=== PATIENT | female | born 1930 | race Caucasian/White ===

== ENCOUNTER 2017-04-13 06:06 | Inpatient (IN) | payer MEDICARE, BC ==
--- NOTE | ~2017-04-13 | CT57 ---
[facility] A Service of [facility] & [facility] RADIOLOGY TEXT RESULTS PATIENT: RIGO GUILLEN LOCATION: [facility] 317- : [birth year] UNIT #: [id number] AGE: [address]: Henna Sosa MD SEX: F ORDER DR: [id number] [facility] [address] [place], [place] [address] [id number] I MR#: [id number] Acc #: [id number] NAME: RIGO GUILLEN. : 1930 SEX: F STUDY DATE/TIME: 04/14/2017 12:12 UNIT: C3A U ROOM: [facility] STUDY DESCRIPTION: CT Chest Wo Cont Attending Physician: eHnna Sosa M.D. Ordering Physician: Henna Sosa M.D. Primary Care Physician: Andrew Ash Jr., M.D. MEDICAL IMAGING REPORT This report is preliminary unless electronic signature is present EXAM Chest CT, no contrast, 04/14/2017. INDICATIONS Weight loss, cough. Hypertension. Symptoms since the 11 of April. Leakage in the heart. TECHNIQUE Noncontrast CT of the chest was performed. This CT exam was performed with one or more of the following radiation dose reduction techniques: automatic exposure control, adjustment of mA and/or kV according to patient size, and iterative reconstruction. COMPARISON STUDIES Correlation is made with chest x-ray, 04/13/2017. FINDINGS Trace effusions present. Right slightly greater than left. Probable compressive atelectasis in both lower lobes, right slightly greater than left. Mild bronchiectatic change in both lower lobes and underlying emphysema. Probable rounded atelectasis or less likely pneumonia in the lingula. Imaging followup to resolution is recommended after appropriate therapy. There are additional areas of curvilinear atelectasis/scarring in both lung bases. No suspicious pulmonary nodule. There is heterogeneity and nodularity of the thyroid gland with what appear to represent calcified thyroid nodules. This could be better assessed with nonemergent thyroid ultrasound. No pericardial effusion. No axillary adenopathy on the right. There is soft tissue swelling in the left axilla, and there is a fracture deformity through the left humerus at the level of the surgical neck. Please see plain film studies performed 04/12/2017 for further details. There is no aortic aneurysm. [facility]. [facility] A Service of [facility] RADIOLOGY TEXT RESULTS PATIENT: RIGO GUILLEN LOCATION: [facility] 317-01 : [birth year] UNIT #: [id number] AGE: [address]: Henna Sosa MD SEX: F ORDER DR: Included upper abdomen demonstrates no acute finding. No distinct rib fracture. Chronic-appearing posterior and lateral rib fractures on the right. IMPRESSION 1. There are trace effusions bilaterally. Probable compressive atelectasis or less likely pneumonia in the lung bases but this should be correlated clinically. There is rounded atelectasis or pneumonia in the lingula. Follow up to clearing after appropriate therapy recommended. 2. Background changes of emphysema. There is bronchiectatic change in both lower lobes. No pneumothorax. 3. There is an acute fracture deformity through the surgical neck of the left humerus, and there is soft tissue swelling in the left shoulder and axilla. 4. Upper abdomen demonstrates no acute finding. Incidental chronic-appearing rib fractures. Dictated by... Noel Fajardo M.D. THIS IS AN ELECTRONICALLY VERIFIED REPORT Noel Fajardo M.D. at 04/15/2017 8:48 AM Margarita TD: 04/14/2017 23:38 JOB #: [id number] MEDICAL IMAGING REPORT Page 1 of 1 COPY
--- NOTE | ~2017-04-13 | US37 ---
[facility] A Service of [facility] & [facility] RADIOLOGY TEXT RESULTS PATIENT: RIGO GUILLEN LOCATION: [facility] 317- : [birth year] UNIT #: [id number] AGE: [address]: Henna Sosa MD SEX: F ORDER DR: [id number] [facility] [address] [place], [place] [address] [id number] I MR#: [id number] Acc #: [id number] NAME: RIGO GUILLEN. : 1930 SEX: F STUDY DATE/TIME: 04/16/2017 8:18 UNIT: C3A PCU ROOM: [facility] STUDY DESCRIPTION: US Carotid W/Doppler Bilateral Attending Physician: Henna Sosa M.D. Ordering Physician: Jack Castaneda M.D. Primary Care Physician: Andrew Ash Jr., M.D. MEDICAL IMAGING REPORT This report is preliminary unless electronic signature is present EXAM Carotid ultrasound duplex bilateral, 04/16/2017. HISTORY Altered mental status, hypertension, hyperlipemia, carotid stenosis. TECHNIQUE Real time ultrasonography cervical carotid and vertebral arteries performed. Dill-scale, color Doppler, and Doppler pulse-wave interrogation utilized. Carotid flow evaluated using methodology based upon NASCET criteria. FINDINGS Atherosclerotic plaque seen at the right carotid bifurcation, in the proximal right internal carotid artery. There is some atherosclerotic plaque seen in the mid left internal carotid artery as well. Peak systolic velocities on the right are as follows: Common carotid artery 0.63 m/sec, internal carotid artery 0.95 m/sec, in the mid segment of the artery, external carotid artery 1.30 m/sec. There is antegrade flow in the right vertebral artery. The right IC/CC ratio is 1.5. Right-sided Doppler pulse waveforms within normal limits. On the left, peak systolic velocities as follows: Common carotid arteries are 0.82 m/sec, internal carotid artery 0.96 m/sec in the distal segment of artery, external carotid artery 1.0 m/sec. There is antegrade flow in the left vertebral artery. The left IC/CC ratio is 1.2. Left-sided Doppler pulse waveforms within normal limits. IMPRESSION 1. There is no evidence of hemodynamically significant luminal narrowing in the bilateral cervical internal carotid arteries using methodology based upon mass effect. [facility] A Service of [facility] RADIOLOGY TEXT RESULTS PATIENT: RIGO GUILLEN LOCATION: [facility] 317-01 : [birth year] UNIT #: [id number] AGE: [address]: Henna Sosa MD SEX: F ORDER DR: 2. Elevated peak systolic velocity in the right external carotid artery could reflect approximately 50% to 69% luminal narrowing in the right external carotid artery. 3. Antegrade flow in both vertebral arteries. 4. Scattered atherosclerotic plaque as described above. Dictated by... Andrew Gannon M.D. THIS IS AN ELECTRONICALLY VERIFIED REPORT Andrew Gannon M.D. at 04/18/2017 11:34 AM PETER/saray TD: 04/16/2017 18:24 JOB #: [id number] MEDICAL IMAGING REPORT Page 1 of 1 COPY
--- NOTE | ~2017-04-13 | MR17 ---
[facility] A Service of [facility] RADIOLOGY TEXT RESULTS PATIENT: RIGO GUILLEN LOCATION: [facility] 317- : [birth year] UNIT #: [id number] AGE: [address]: Henna Sosa MD SEX: F ORDER DR: [id number] [facility] [address] [place], [place] [address] [id number] I MR#: [id number] Acc #: [id number] NAME: RIGO GUILLEN : 1930 SEX: F STUDY DATE/TIME: 04/15/2017 12:00 UNIT: C3A PCU ROOM: [facility] STUDY DESCRIPTION: MR Brain WWo Contrast Attending Physician: Henna Sosa M.D. Ordering Physician: Henna Sosa M.D. Primary Care Physician: Andrew Ash Jr., M.D. MRI CENTER REPORT This report is preliminary unless electronic signature is present. EXAM MRI with and without contrast Date study 04/15/2017 PROCEDURE Routine brain MRI with and without contrast. COMPARISON STUDIES Head CT dated 04/13/2017. CLINICAL HISTORY Fall last night with syncope and dizziness. FINDINGS There is a thin right and left subdural hematoma with both acute and chronic components. It is only truly evident on FLAIR and gradient-echo images. There is some thin dural enhancement suggesting probably chronic subdural collections, but there is no parenchymal hemorrhage or evidence of acute ischemia. The dural venous sinuses appear normal and bone marrow signal is normal. IMPRESSION 1. Thin mixed age with some acute component bilateral subdural collections/ hemorrhage without acute ischemia or acute parenchymal hemorrhage. There is some dural enhancement which may indicate more chronic subdural process, but there is no midline shift or hydrocephalus, parenchymal hemorrhage or acute ischemia. There are nonspecific chronic white matter changes. 2. Even in retrospect the subdural blood was not apparent on head CT 04/13/2017. [facility] A Service of [facility] RADIOLOGY TEXT RESULTS PATIENT: RIGO GUILLEN LOCATION: [facility] 317- : [birth year] UNIT #: [id number] AGE: [address]: Henna Sosa MD SEX: F ORDER DR: Results called to the patient's nursing tillman at approximately 01:15 p.m. STAT * RESULT Dictated by... Milo Birmingham M.D. THIS IS AN ELECTRONICALLY VERIFIED REPORT Milo Birmingham M.D. at 04/16/2017 10:53 AM THALIA/cassius TD: 04/15/2017 13:18 JOB #: [id number] MRI CENTER REPORT Page 1 of 1 COPY
--- NOTE | ~2017-04-13 | CT71 ---
[facility] A Service of [facility] RADIOLOGY TEXT RESULTS PATIENT: RIGO GUILLEN LOCATION: [facility] 317-01 : [birth year] UNIT #: [id number] AGE: [address]: ELIZABETH GALVAN MD SEX: F ORDER DR: [id number] [facility] [address] [facility]. [place], [place] [address] [id number] I MR#: [id number] Acc #: [id number] NAME: RIGO GUILLEN. : 1930 SEX: F STUDY DATE/TIME: 04/13/2017 7:36 UNIT: CEDOF ROOM: 74928 STUDY DESCRIPTION: CT Head Wo Contrast Attending Physician: Elizabeth Galvan M.D. Ordering Physician: Jeromy Acosta M.D. Primary Care Physician: Andrew Ash Jr., M.D. MEDICAL IMAGING REPORT This report is preliminary unless electronic signature is present EXAM Head CT without contrast HISTORY Syncopal episode this morning with a fall and head injury. TECHNIQUE Axial images were obtained without contrast. This CT examination was performed with one or more of the following radiation dose reduction techniques: automatic exposure control, adjustment of mA and/or kV according to patient size, and iterative reconstruction. FINDINGS Ventricular size and configuration are normal. There is no evidence of acute infarct or hemorrhage. There are no extra-axial fluid collections. No mass lesion or mass effect is seen. There are no skull fractures. IMPRESSION Normal noncontrast head CT. Dictated by... David Gomez M.D. THIS IS AN ELECTRONICALLY VERIFIED REPORT David Gomez M.D. at 04/13/2017 4:49 PM NICAF/claudia TD: 04/13/2017 14:03 JOB #: [id number] MEDICAL IMAGING REPORT [facility] A Service of [facility] & [facility] RADIOLOGY TEXT RESULTS PATIENT: RIGO GUILLEN LOCATION: [facility] 317-01 : [birth year] UNIT #: [id number] AGE: [address]: ELIZABETH GALVAN MD SEX: F ORDER DR: Page 1 of 1 COPY
--- NOTE | ~2017-04-13 | CR4 ---
[facility] A Service of [facility] & [facility] RADIOLOGY TEXT RESULTS PATIENT: RIGO GUILLEN LOCATION: [facility] 317-01 : [birth year] UNIT #: [id number] AGE: [address]: ELIZABETH GALVAN MD SEX: F ORDER DR: [id number] [facility] [address]. [place], [place] [address] [id number] I MR#: [id number] Acc #: [id number] NAME: RIGO GUILLEN : 1930 SEX: F STUDY DATE/TIME: 04/13/2017 7:21 [facility] [address] STUDY DESCRIPTION: CR Abdomen Flat Upright or Dec Attending Physician: Elizabeth Galvan M.D. Ordering Physician: Jeromy Acosta M.D. Primary Care Physician: Andrew Ash Jr., M.D. MEDICAL IMAGING REPORT This report is preliminary unless electronic signature is present EXAM Flat and upright abdomen HISTORY Nausea, vomiting and syncope for the past day TECHNIQUE Flat upright views of the abdomen were obtained. FINDINGS AP supine and upright examination of the abdomen shows a normal gas and fecal pattern distribution throughout large and small bowel without distended loops in either area. There is no indication of extraluminal air, visceromegaly, or soft tissue density mass. The renal definitions are fairly well demarcated and normal in shape and size. No abnormal intra-abdominal calcifications are present. IMPRESSION Normal abdomen. Dictated by... David Gomez M.D. THIS IS AN ELECTRONICALLY VERIFIED REPORT David Gomez M.D. at 04/13/2017 4:49 PM LEONARDA/cassius TD: 04/13/2017 14:35 JOB #: [id number] MEDICAL IMAGING REPORT Page 1 of 1 COPY
--- NOTE | ~2017-04-13 | EE ---
Unit #: [id number] #: [id number] Patient: RIGO GUILLEN [id number] [address] [address] [id number] I MR#: [id number] NAME: RIGO GUILLEN. : 1930 SEX: F STUDY DATE/TIME: 04/18/2017 UNIT: C3A PCU ROOM: [address] [place] [address] DESCRIPTION: EEG Attending Physician: Henna Sosa M.D. Referring Physician: Henna Sosa M.D. Primary Care Physician: Andrew Ash Jr., M.D. NEURODIAGNOSTICS REPORT PROCEDURE PERFORMED EEG. REASON FOR STUDY Syncope. EEG DESCRIPTION This is an inpatient, digitally recorded, multi-montage, adult EEG with leads placed according to the International 10-20 system. Hyperventilation was not done, but photic stimulation was attempted. PROCEDURE REPORT With the patient fully aroused, there is 8- to 9-Hz posterior background. The patient did become drowsy, and later on stage II sleep was seen. There seemed to be an artifact at T6. Hyperventilation was not done. Photic stimulation was attempted in intermittent stepwise pattern up to flash frequency of 30 Hz, but I did not see any driving, asymmetry or paroxysmal activity. No clinical events were seen. IMPRESSION Likely normal adult, awake and asleep EEG. An EEG like this does not rule out epilepsy. There seemed to be an artifact in one of the leads but nothing other abnormal. Clinical correlation is recommended. Again, an EEG like this does not rule out epilepsy. Dictated by... Sheldon Goetz/corby TD: 04/24/2017 08:29 JOB #: [id number] Unit #: [id number] #: [id number] Patient: RIGO GUILLEN NEURODIAGNOSTICS REPORT Page 1 of 1 X Jack Castaneda MD NEURODIAGNOSTICS REPORT
--- NOTE | ~2017-04-13 | CT71 ---
[facility] A Service of [facility] RADIOLOGY TEXT RESULTS PATIENT: RIGO GUILLEN LOCATION: [facility] 317 : [birth year] UNIT #: [id number] AGE: [address]: Henna Sosa MD SEX: F ORDER DR: [id number] [place] [id number] [facility]. [place], [place] [address] [id number] I MR#: [id number] Acc #: [id number] NAME: RIGO GUILLEN. : 1930 SEX: F STUDY DATE/TIME: 04/16/2017 8:53 [facility]: [address] [place] [address] DESCRIPTION: CT Head Wo Contrast Attending Physician: Henna Sosa M.D. Ordering Physician: Jack Castaneda M.D. Primary Care Physician: Andrew Ash Jr., M.D. MEDICAL IMAGING REPORT This report is preliminary unless electronic signature is present EXAM Head CT no contrast 04/16/2017 PROCEDURE Axial unenhanced head CT. This CT exam was performed with one or more of the following radiation dose reduction techniques: automatic exposure control, adjustment of mA and/or kV according to patient size, and iterative reconstruction. COMPARISON 04/13/2017 CLINICAL HISTORY Episodes of dizziness with syncope and fall on April 13. FINDINGS There is no intracranial hemorrhage or mass. There is no hydrocephalus or extraaxial fluid collection. The extracranial soft tissues are normal and the skull base and calvarium are unremarkable. There is mild age-appropriate volume loss but no acute abnormality. IMPRESSION Negative unenhanced head CT. Dictated by... Milo Birmignham M.D. THIS IS AN ELECTRONICALLY VERIFIED REPORT Milo Birmingham M.D. at 04/25/2017 10:39 AM TEV/to TD: 04/16/2017 19:20 JOB #: [id number] [facility] A Service [facility] RADIOLOGY TEXT RESULTS PATIENT: RIGO GUILLEN LOCATION: [facility] 317 : [birth year] UNIT #: [id number] AGE: [address]: Henna Sosa MD SEX: F ORDER DR: MEDICAL IMAGING REPORT Page 1 of 1 COPY
--- NOTE | ~2017-04-13 | CO ---
Unit #: [id number] #: [id number] Patient: RIGO GUILLEN [id number] [facility] [address] [facility]. [place], [place] [address] [id number] I MR#: [id number] NAME: RIGO GUILLEN ROOM: 317 Age: 86 Sex: F Admission Date: 04/15/2017 : 1930 Attending Physician: Henna Sosa M.D. Primary Care Physician: Andrew Ash Jr., M.D. Requesting Physician: Henna Sosa M.D. Consultation Date: 04/15/2017 CONSULTATION REPORT REASON FOR CONSULTATION Abnormal brain MRI with bilateral subdurals. PATIENT IDENTIFICATION This is an 86-year-old, right handed, white female who was evaluated in room 317 at [facility]. SOURCE OF INFORMATION The patient and her daughter and my discussion with her and also the history and physical. PROBLEM LIST 1. Hypertension. 2. Emphysema. 3. Hypothyroidism. 4. History of "leaky valve." 5. History of recent fall with left humeral fracture. 6. Bilateral cataract excision. 7. Colonoscopy and left sided shoulder surgery. HISTORY OF PRESENT ILLNESS This is a very pleasant 86-year-old, right handed, white female who actually presented to the emergency room on the about 6:00 in the morning. The reason was the patient had a fall. She had a syncopal episode. She has had nausea and vomiting. She was evaluated and she had head CT done which was unremarkable but today she went for MRI which showed bilateral varying age subdurals, very small but they could be acute and some chronic changes which were not evident on CT. This patient did have syncope at this time. She was confused. She fell backwards and hit her head and the family reported that she was out for about two to three minutes. She was sort of staring. The patient does not remember any of that. It is also important to note that she was here, I believe the day before the admission, after the fall. After the fall, she has left humeral fracture. She was given some [place]. That fall was mechanical. She was fixing a porch light and she fell from the steps of some sort. It looks like she has had several falls, probably four in total, and Unit #: [id number] #: [id number] Patient: RIGO GUILLEN except for this one, most of them mechanical. She never really passed out. She has been acting strange, confused and accusatory and disoriented and that is what got the family involved. I talked to the daughter earlier and the plan was to observe her because she is stable and I did give them the option to transfer her to [facility] but they would rather observe. There is no history of seizures. No history of TIAs. She has not had any anticoagulation. Except for the pain medication, nothing else has been changed. No palpitations, no syncope, seizure, near syncope or events like this. PAST MEDICAL HISTORY As discussed above. PAST SURGICAL HISTORY As discussed above. ALLERGIES Penicillin. MEDICATION Home medications are: 1. Aspirin. 2. Atorvastatin. 3. Hydrochlorothiazide. 4. [place]. 5. Metoprolol. 6. Norvasc. 7. Alendronate. FAMILY HISTORY No history of seizures. SOCIAL HISTORY The patient actually resides, it says with her daughter, but it looks like she is alone and she is quite independent. She does her own work in [employer]. It says but I don't have further details. There is no tobacco, alcohol or drug use. REVIEW OF SYSTEMS The patient denies any weight issues, fever, chills, rigors, sweats. HEENT: No headaches, no double vision, no earache, runny nose, sore throat. CARDIOVASCULAR: No chest pain, clubbing, cyanosis, orthopnea, palpitations. PULMONARY: No shortness of air, cough or expectoration. GASTROINTESTINAL: No nausea, vomiting, diarrhea or constipation. GENITOURINARY: No genitourinary symptoms. EXTREMITIES: She recently had left humeral fracture. BACK: No back problems. PSYCHIATRIC: Psychiatric issues. NEUROLOGICAL: Syncope, near syncope and confusion. HEMATOLOGIC/DERMATOLOGIC/ENDOCRINE: No hematologic, dermatologic or endocrine issues. Unit #: [id number] #: [id number] Patient: RIGO GUILLEN PHYSICAL EXAMINATION VITAL SIGNS: Temperature 98.1, pulse is 59, respirations 16, blood pressure 136/63. O2 sats are 97% to 100%. Weight 150 pounds. BMI was 22. NEUROLOGICAL EXAMINATION: The patient is awake, she is alert. She thinks this is Sunday, either 15 of April. She can name, she can follow commands. She knows she is at [facility]. No right/left confusion. No finger agnosia. CRANIAL NERVE EXAMINATION: Demonstrates full davila of vision to confrontation. Eye movements are conjugate. I did not see any ptosis, I did not see any nystagmus. Extraocular movements are intact. Sensation on the face and scalp is normal. Pupils are round, reactive to light and accommodation. Hearing seemed to be intact bilaterally. Tongue was midline. Uvular was midline. Palate elevation was normal. Head turning and shoulder shrugs were unremarkable. MOTOR EXAMINATION: Demonstrated normal bulk, tone. Strength was essentially 5-/5. SENSORY EXAMINATION: Intact for soft touch and pain sensation. No extinction was seen. Romberg was not evaluated. GAIT EXAMINATION: Deferred. REFLEXES: Reflexes 1/4. Toes are equivocal. COORDINATION: Normal. DIAGNOSTIC STUDIES IMAGING: Head CT and MRI results reviewed. LABORATORY: Random glucose was 107 to 129. Sodium was 127 to 133. Albumin was 2.9 to 3.2. B12 already ordered was 336. White count was 10.9, H and H of 12.5 and 38.5, platelet count is 207. Urinalysis was pretty much unremarkable. IMPRESSION This is a very interesting 86-year-old female with syncopal episodes. She had bilateral subdurals. These are very small. I am going to repeat the imaging study and see how things go. Why did she have a syncopal episode, we are uncertain. The patient stated that it is all because of so many medications. She is encephalopathic and that could be secondary to the medication and being in the hospital and because of her age and possible other comorbidities. Her B12 is suboptimal. I will check her CT of head in the morning. I will check her EEG. I will check her carotids. Cardiology is seeing her and I believe she has an event monitor. If you find something, will evaluate further and treat her as indicated. Otherwise, I will consider it a possible incidental one-time fall. No seizures reported. I talked to her daughter over the phone and now and I will follow her tomorrow. Call me if any other questions. Dictated by... Jack Castaneda M.D. [place] TD: 04/16/2017 09:34 JOB #: [id number] Unit #: [id number] #: [id number] Patient: RIGO GUILLEN CONSULTATION REPORT Page 1 of 1 X Jack Castaneda MD CONSULTATION REPORT
--- NOTE | ~2017-04-13 | EKG ---
PATIENT: RIGO GUILLEN UNIT #: [id number] Ventricular Rate: 72 BPM Atrial Rate: 72 BPM P-R Interval: 262 ms QRS Duration: 84 ms Q-T Interval: 426 ms QTC Calculation(Bezet): 466 ms P Caraway: 89 degrees Calculated R Caraway: 30 degrees Calculated T Caraway: 64 degrees Diagnosis Line: Sinus rhythm with 1st degree A-V block with Diagnosis Line: Premature atrial complexes Diagnosis Line: Nonspecific ST and T wave abnormality Diagnosis Line: Abnormal ECG Diagnosis Line: No previous ECGs available Diagnosis Line: Confirmed by MICHAEL RUBIO MD ([id number]) on 04/18/2017 Diagnosis Line: 2:30:18 PM INTERPRETING MD: JOANNE JENNINGS
--- NOTE | ~2017-04-13 | MR122 ---
[facility] A Service of [facility] RADIOLOGY TEXT RESULTS PATIENT: RIGO GUILLEN LOCATION: [facility] 317 : [birth year] UNIT #: [id number] AGE: [address]: Henna Sosa MD SEX: F ORDER DR: [id number] [facility] [address] [facility] [place], [place] [address] [id number] I MR#: [id number] Acc #: [id number] NAME: RIGO GUILLEN. : 1930 SEX: F STUDY DATE/TIME: 04/15/2017 11:12 UNIT: [id number] PCU ROOM: [facility] STUDY DESCRIPTION: MR MRA Head Wo Contrast Attending Physician: Henna Sosa M.D. Ordering Physician: Henna Sosa M.D. Primary Care Physician: Andrew Ash Jr., M.D. MRI CENTER REPORT This report is preliminary unless electronic signature is present. EXAM Head MRA no contrast, 04/15/2017 PROCEDURE Axial unenhanced head MRA with three-dimensional reformats. COMPARISON Head MRI same date. CLINICAL HISTORY Fell and struck head. Closed head injury after syncopal episode. Dizziness. FINDINGS Both internal carotid and vertebral arteries are patent. The basilar artery is patent. The [place] of Ch is complete but there is no intracranial aneurysm or flow-limiting stenosis. Distal runoff is symmetric intracranially in the anterior, middle and posterior cerebral distributions. IMPRESSION Normal head MRA. Complete [place] of Ch. No intracranial aneurysm or flow-limiting stenosis. Dictated by... Milo Birmingham M.D. THIS IS AN ELECTRONICALLY VERIFIED REPORT Milo Birmingham M.D. at 04/16/2017 10:55 AM THALIA/alfredo [facility] [place] [facility] TEXT RESULTS PATIENT: RIGO GUILLEN LOCATION: [facility] 317 : [birth year] UNIT #: [id number] AGE: [address]: Henna Sosa MD SEX: F ORDER DR: TD: 04/15/2017 22:34 JOB #: [id number] MRI CENTER REPORT Page 1 of 1 COPY
--- NOTE | ~2017-04-13 | CR72 ---
[facility] A Service of [facility] RADIOLOGY TEXT RESULTS PATIENT: RIGO GUILLEN LOCATION: [facility] 317-01 : [birth year] UNIT #: [id number] AGE: [address]: Henna Sosa MD SEX: F ORDER DR: [id number] [facility] [address] [place], [place] [address] [id number] I MR#: [id number] Acc #: [id number] NAME: RIGO GUILLEN : 1930 SEX: F STUDY DATE/TIME: 04/13/2017 6:37 [facility]: [facility] STUDY DESCRIPTION: CR Chest Single View Portable Attending Physician: Henna Sosa M.D. Ordering Physician: Jeromy Acosta M.D. Primary Care Physician: Andrew Ash Jr., M.D. MEDICAL IMAGING REPORT This report is preliminary unless electronic signature is present REVISED REPORT See addendum EXAM Frontal chest, 04/13/2017 INDICATIONS An 86-year-old female with syncopal episode, short of air, nausea vomiting, shoulder pain on the left after fall yesterday. FINDINGS Frontal chest was performed. COMPARISON 02/23/2016 FINDINGS Cardiac silhouette within normal limits. Vascularity within normal limits. There is chronic atelectasis or scarring in the left lung base. Mild diffuse interstitial prominence in both lungs is stable. No pneumothorax. IMPRESSION 1. Underlying emphysematous change with chronic atelectasis or scarring in the left lung base. No pneumothorax. 2. Chronic fracture deformity of the left humerus. Dictated by... Noel Fajardo M.D. THIS IS AN ELECTRONICALLY VERIFIED REPORT Noel Fajardo M.D. at 04/13/2017 3:31 PM RUTH/cassius [facility] A Service of [facility] RADIOLOGY TEXT RESULTS PATIENT: RIGO GUILLEN LOCATION: [facility] 317- : [birth year] UNIT #: [id number] AGE: [address]: Henna Sosa MD SEX: F ORDER DR: TD: 04/13/2017 13:35 JOB #: [id number] EXAM Frontal chest, 04/13/2017. ADDENDUM The fracture deformity of the left humerus which was described as chronic, actually represents an acute fracture deformity. Please see the shoulder and humerus series examinations 04/12/2017, for further details. Dictated by... Noel Fajardo M.D. THIS IS AN ELECTRONICALLY VERIFIED REPORT Noel Fajardo M.D. at 04/16/2017 11:15 AM RUTH/ayana TD: 04/14/2017 23:41 JOB #: [id number] CC: Estefania/levi Please Delete MEDICAL IMAGING REPORT Page 1 of 1 COPY
--- NOTE | ~2017-04-13 | DS ---
Unit #: [id number] #: [id number] Patient: RIGO GUILLEN [id number] [address] [address] [id number] I MR#: [id number] NAME: RIGO GUILLEN. ROOM: 317 Age: 86 Sex: F Admission Date: 04/15/2017 : 1930 Discharge Date: 04/18/2017 Attending Physician: Henna Sosa M.D. Primary Care Physician: Andrew Ash Jr., M.D. DISCHARGE SUMMARY ADMISSION DIAGNOSES 1. Syncope. 2. Hyponatremia. 3. Hypokalemia. 4. History of fracture of the left humerus. DISCHARGE DIAGNOSES 1. Subdural hematoma. 2. Frequent falls. 3. Syncopal episodes. 4. Dementia, mild. 5. History of left humerus fracture. 6. History of hypertension. 7. Hyponatremia, resolved. 8. Hypokalemia, resolved. 9. Hypomagnesemia, resolved. 10. Possible esophageal dysmotility. CONSULTANTS Jack Castaneda M.D., neurology. PROCEDURES PERFORMED None. DIAGNOSTIC DATA LABORATORY: White blood cell count 10.8, hemoglobin 11.8, hematocrit 35.5, platelets 282,000. Sodium 134, potassium 3.6, chloride 98, CO2 28, glucose 98, BUN 21, creatinine 0.6, calcium 8.8, total cholesterol 119, triglycerides 67, LDL cholesterol 59, HDL cholesterol 47. Magnesium 1.8. Blood cultures preliminary times 2 no growth after 24 hours. Final blood cultures pending at this time. B12 greater than 1500. Folate 12.0. TSH 2.78. IMAGING: CT of the head without contrast with impression of negative unenhanced head CT. Carotid ultrasound duplex bilaterally, impression of no evidence of hemodynamically significant luminal narrowing in the bilateral cervical internal carotid arteries using methodology base for mass effect. Elevated peak systolic velocity in the right external carotid artery could reflect approximately 50%-69% luminal narrowing in the right external carotid artery. Antegrade flow in both vertebral arteries. Scattered atherosclerotic plaque as described above. Unit #: [id number] #: [id number] Patient: RIGO GUILLEN MRI of the brain with and without contrast, thin mixed age with some acute component bilateral subdural collections/hemorrhage without acute ischemia or acute parenchymal hemorrhage. Some dural enhancement which may indicate more chronic subdural process, but there is no midline shift or hydrocephalus, parenchymal hemorrhage or acute ischemia. There are nonspecific chronic white matter changes. Even in retrospect the subdural blood was not apparent on head CT 04/13/2017. MRA of the neck with impression of normal neck MRA. Normal carotid bifurcations. No stenosis on either side by NASCET criteria. Codominant vertebral arteries. MRA of the head, normal head MRA. Complete [place] of [place], no intracranial aneurysm or flow-limiting stenosis. CONDITION Stable. [facility], where she has been accepted and a bed are available for her today. ALLERGIES Penicillin. DISCHARGE MEDICATIONS 1. Norvasc 10 mg p.o. daily. 2. Lopressor 50 mg p.o. b.i.d. 3. Hydrochlorothiazide 25 mg p.o. daily. 4. Lipitor 10 mg p.o. daily at bedtime. 5. Fosamax 1 tablet p.o. weekly. 6. Hydrocodone/Acet 5/325 mg tablet 1 p.o. q.6 h. p.r.n. moderate pain. 7. KCL 20 mEq tablet 1 p.o. daily, #15 no refills. 8. Aspirin 81 mg p.o. daily. THIS MEDICATION IS ON HOLD PENDING FURTHER DIRECTIONS FROM DR. CASTANEDA OF NEUROLOGY. DISCHARGE INSTRUCTIONS 1. The patient is to continue slick consistency diet, thin liquids, and six small meals a day. She is to be upright for all oral intake. She is to have medications whole in applesauce. 2. The patient's IV will be discontinued prior to discharge. 3. The patient is to have a BMP and magnesium level collected at rehab in two to three days. 4. The patient is to call and schedule follow-up appointment with the neurologist, Dr. Derrek Del Angel in six to eight weeks. HOSPITAL COURSE The patient is an 86-year-old female who presented to [facility] emergency department on the date of admission after she sustained fall at home. Of note, this patient had just been discharged from our emergency department the day prior to representation to [facility] on 04/13/2017. CT of the head was performed in the emergency department and was negative. However, she was found to have a potassium of 2.7, sodium 127 and was, therefore, admitted for further evaluation and management of her condition. Please refer to the history and physical report for complete details. The patient's electrolytes were repleted and her sodium, potassium and Unit #: [id number] #: [id number] Patient: RIGO GUILLEN magnesium are in normal range today. However, the patient continues on hydrochlorothiazide and she is not on a maintenance dose of potassium. I have given her a prescription for potassium 20 mEq p.o. daily with instructions for her to have a BMP pain and magnesium level rechecked at rehab in two to three days to check these levels. The patient was noted to have an incidental finding of subdural hematoma and neurology was consulted. A swallow evaluation was performed, which indicated the patient may have symptoms of esophageal involvement. However, the patient is on a slick consistency diet and has been tolerating it well. All speech therapy recommendation as dictated above under discharge instruction are to be continued at the rehab facility. The patient is noted to have a history of mild dementia and frequent falls. Therefore, she is being transferred to the rehab facility. She recently underwent ORIF of extraarticular distal radius fracture and is to keep her follow-up appointment with orthopedics per their recommendations when she was discharged from that admission. At this time the patient has been evaluated by Dr. Sosa and has been discharged from the hospital. At this time we are awaiting further recommendations regarding whether we should continue to hold the patient's aspirin per home dose. Once information in that regard is received the medication reconciliation will be updated. Dictated by... Milli Roth A.P.R.N. for Sheldon Mcclain/bill TD: 04/18/2017 14:19 JOB #: [id number] DISCHARGE SUMMARY Page 1 of 1 X Milli Roth APRN X DISCHARGE SUMMARY
--- NOTE | ~2017-04-13 | HP ---
Unit #: [id number] #: [id number] Patient: RIGO GUILLEN [id number] [address] [place], [place] [address] [id number] I MR#: [id number] NAME: RIGO GUILLEN. ROOM: 58891 Age: 86 Sex: F Admission Date: 04/13/2017 : 1930 Attending Physician: Elizabeth Galvan M.D. Primary Care Physician: Andrew Ash Jr., M.D. HISTORY AND PHYSICAL CHIEF COMPLAINT Syncopal episode. HISTORY OF PRESENT ILLNESS The patient is an 86-year-old female with a history of a fall and humerus fracture on the left side, was discharged from the ER yesterday after a fall. The patient was discharged home on the pain medication Gold [place]. The patient took the medications at 11:00 p.m. last night and the next dose was at 5 o'clock this morning. The patient was found down at the scene around 5:30 this morning. the patient stated that patient denies any headache, nausea, vomiting or chest pain or diaphoresis. The patient states the patient started having nausea when she was brought to the emergency room. The patient had x-rays of the head. CT of the head is negative and was found to have a potassium of 2.7 and the sodium of 127 and is being admitted for the above reasons. The patient denies any fever or chills. 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 PAST SURGICAL HISTORY D/C, bilateral cataract surgery, colonoscopy and left shoulder complete fracture of the neck of the humerus. ALLERGIES Penicillin. SOCIAL HISTORY Resides with her daughter and denies any history of smoking cigarettes, drinking alcohol or any illicit drug abuse. FAMILY HISTORY Reviewed and none. REVIEW OF SYMPTOMS Fourteen-point review of symptoms performed and only pertinent positive findings as described above, remaining are negative. PHYSICAL EXAMINATION GENERAL APPEARANCE: On examination the patient is lying on a bed not in acute distress. VITAL SIGNS: Temperature 97.6, pulse 65, respiratory rate 25, blood Unit #: [id number] #: [id number] Patient: RIGO GUILLEN pressure 144/55, sating 95% at room air. HEENT: Head atraumatic/normocephalic. Pupils equal, round and reacting to light and accommodation. Dry mucous membrane. NECK: Supple. LUNGS: Decreased air entry at the bases. HEART: Regular rate and rhythm. ABDOMEN: Soft. EXTREMITIES: Patient has a sling on the left upper extremity. No cyanosis. No clubbing. NEUROLOGIC: Awake, alert and oriented. Decreased range of motion on the left upper extremity and no gross focal motor deficit. DIAGNOSTIC STUDIES IMAGING: Patient had an x-ray of the humerus from yesterday that showed complete fracture of the surgical neck of the fracture. X-ray of the shoulder from today shows complete surgical neck fracture with angulation and foreshortening as described, no dislocation. Chest x-ray shows underlying emphysematous parra with chronic atelectasis or scarring in the left lung base, no pneumothorax, chronic plaques or deformity of the left humerus. CT of the head normal noncontrast head CT. Abdominal x-ray shows normal. LABORATORY DATA: Troponin less than 0.05, WBC 10.3, hemoglobin is 12.7, hematocrit 39.2, platelets 221, INR is 1, sodium 127, potassium 2.7, chloride 96, glucose 129, BUN 29, creatinine 0.9. UA shows negative bacteria, negative nitrites. ASSESSMENT 1. Syncope. 2. Hyponatremia. 3. Hypokalemia. 4. History of a fracture of the left humerus. PLAN Plan to admit the patient to observation. Patient will receive the IV fluid normal saline at 75 mL per hour and replace the potassium per protocol and will hold the [place] and continue with the morphine for the pain and continue with the speech and swallow and further recommendations will follow. Dictated by Sheldon Santana/marilou TD: 04/13/2017 15:25 JOB #: [id number] Unit #: [id number] #: [id number] Patient: RIGO GUILLEN HISTORY AND PHYSICAL Page 1 of 1 X ELIZABETH GALVAN MD HISTORY AND PHYSICAL
--- NOTE | ~2017-04-13 | MR134 ---
[facility] A Service of [facility] RADIOLOGY TEXT RESULTS PATIENT: RIGO GUILLEN LOCATION: [facility] 317- : [birth year] UNIT #: [id number] AGE: [address]: Henna Sosa MD SEX: F ORDER DR: [id number] [facility] [address] [place], [place] [address] [id number] I MR#: [id number] Acc #: [id number] NAME: RIGO GUILLEN. : 1930 SEX: F STUDY DATE/TIME: 04/15/2017 11:41 UNIT: [address] ROOM: [facility] STUDY DESCRIPTION: MR MRA Neck Wo Contrast Attending Physician: Henna Sosa M.D. Ordering Physician: Henna Sosa M.D. Primary Care Physician: Andrew Ash Jr., M.D. MRI CENTER REPORT This report is preliminary unless electronic signature is present. EXAM Neck MRA no contrast, 04/15/2017 HISTORY Status post fall yesterday with closed head injury, syncope and dizziness. FINDINGS Both common and internal and external carotid and vertebral arteries are widely patent. The vertebral arteries are codominant. The cervical carotid bifurcations are normal without evidence of plaque or stenosis by NASCET or other criteria. IMPRESSION 1. Normal neck MRA. Normal carotid bifurcations. No stenosis on either side by NASCET criteria. 2. Codominant vertebral arteries. Dictated by... Milo Birmingham M.D. THIS IS AN ELECTRONICALLY VERIFIED REPORT Milo Birmingham M.D. at 04/16/2017 10:55 AM THALIA/alfredo TD: 04/15/2017 22:38 JOB #: [id number] MRI CENTER REPORT Page 1 of 1 COPY
[~2017-04-13 06:06] MED LIST: ALENDRONATE SOD70 MG PO; AMLODIPINE BESY10 MG PO; ASPIRIN81 M2 PO; ATARAX PO; ATORVASTATIN CA10 MG PO; DIOVAN HCT 160/1 TAB PO; HYDROCHLOROTHIA25 MG PO; HYDROCODONE-APA1 T55 PO; LOPRESSOR PO; MEDROL4 MG/DOSE- PO; MULTIPLE VITAMI1 T11 PO
[2017-04-13 06:54] LABS: POC - CKMB 3.3 ng/mL (0.0-7.9); POC - TROPONIN <0.05 ng/mL (<=0.05)
[2017-04-13 07:21] LABS: BASOPHIL% 0.3 % (0-2.5); EOSINOPHIL% 0.2 % (0.0-7.0); HEMATOCRIT 39.2 % (35.0-45.0); HEMOGLOBIN 12.7 gm/dL (12.0-16.0); LYMPHOCYTE% 19.6 % (17.0-45.0); MEAN CORPUSCULAR HEMOGLOBIN 29.8 PG (28-34); MEAN CORPUSCULAR HGB CONC 32.4 g/dL (30-36); MEAN PLATELET VOLUME 9.5 FL (6.5-11.5); MONOCYTE# 0.9 X10e3 (0-1.0); MONOCYTE% 9.2 % (3.0-12.0); NEUTROPHIL# 7.3 X10e3 (1.5-7.1); NEUTROPHIL% 70.7 % (40-75); PLATELET COUNT 221 X10e3 (140-420); RED BLOOD COUNT 4.26 X10e (3.90-5.30); RED CELL DISTRIBUTION WIDTH 13.9 % (11.0-15.5); WHITE BLOOD COUNT 10.3 X10e3 (4.0-10.5)
[2017-04-13 07:27] LABS: DIFF IND NO
[2017-04-13 07:43] LABS: PARTIAL THROMBOPLASTIN TIME 24.8 SECONDS (23.5-31.3); PROTHROMBIN TIME (PATIENT) 10.5 SECONDS (10.0-11.7)
[2017-04-13 08:01] LABS: ALBUMIN SERUM 3.2 g/dL (3.5-5.0); BILIRUBIN, DIRECT 0.2 mg/dL (0.0-0.2); BILIRUBIN,INDIRECT 0.9 mg/dL (0.0-0.9); BILIRUBIN,TOTAL 1.1 mg/dL (0.2-2.0); BUN/CREATININE RATIO 24.44; CALCIUM SERUM 8.4 mg/dL (8.4-10.2); CREATININE SERUM 0.9 mg/dL (0.6-1.4); GLOM FILT RATE Estimated 57.1 mL/min (>60); PROTEIN TOTAL SERUM 6.3 g/dL (6.0-8.3)
[2017-04-13 08:02] LABS: POTASSIUM 2.7 mmol/L (3.5-5.1)
[2017-04-13 08:36] LABS: URINE APPEARANCE CLEAR; URINE BILIRUBIN NEG (NEG); URINE BLOOD NEG (NEG); URINE COLOR YELLOW; URINE GLUCOSE NEG (NEG); URINE KETONE NEG (NEG); URINE LEUKOCYTE ESTERASE NEG (NEG); URINE NITRATE NEG (NEG); URINE PROTEIN NEG (NEG); URINE SPECIFIC GRAVITY 1.018 (1.003-1.035); URINE UROBILINOGEN 0.2 MG/DL (NEG)
[2017-04-13 09:10] LABS: URINE SOURCE CATH
[2017-04-13 09:11] LABS: CULTURE INDICATED? NO
[2017-04-13] MEDS ORDERED: PATIENT'S PHARMACY (10:04)
[2017-04-13] MEDS ORDERED: HYDROCODON-ACE1 EAC7 PO ×2 (10:04→14:45)
[2017-04-13] MEDS ORDERED: ALENDRONATE SOD70 MG PO (10:05)
[2017-04-13] MEDS ORDERED: HYDROCHLOROTHIA25 MG PO (10:05)
[2017-04-13] MEDS ORDERED: LIPITOR PO (10:05)
[2017-04-13] MEDS ORDERED: LOPRESSOR PO (10:05)
[2017-04-13] MEDS ORDERED: NORVASC10 MG PO (10:05)
[2017-04-13] MEDS ORDERED: ASPIRIN81 MG PO (14:44)
[2017-04-13 15:52] LABS: MAGNESIUM 2.1 mg/dL (1.6-3.0); POTASSIUM 3.9 mmol/L (3.5-5.1)
[2017-04-14 07:28] LABS: BASOPHIL# 0.1 X10e3 (0-0.3); BASOPHIL% 0.5 % (0-2.5); EOSINOPHIL% 0.3 % (0.0-7.0); HEMATOCRIT 36.6 % (35.0-45.0); HEMOGLOBIN 12.1 gm/dL (12.0-16.0); LYMPHOCYTE# 1.5 X10e3 (1.0-3.5); LYMPHOCYTE% 14.8 % (17.0-45.0); MEAN CELL VOLUME 91.7 FL (83-96); MEAN CORPUSCULAR HEMOGLOBIN 30.3 PG (28-34); MEAN PLATELET VOLUME 9.1 FL (6.5-11.5); MONOCYTE% 9.6 % (3.0-12.0); NEUTROPHIL# 7.7 X10e3 (1.5-7.1); NEUTROPHIL% 74.8 % (40-75); PLATELET COUNT 213 X10e3 (140-420); RED CELL DISTRIBUTION WIDTH 13.7 % (11.0-15.5); WHITE BLOOD COUNT 10.3 X10e3 (4.0-10.5)
[2017-04-14 07:32] LABS: DIFF IND NO
[2017-04-14 07:58] LABS: BUN/CREATININE RATIO 16.66; CALCIUM SERUM 8.7 mg/dL (8.4-10.2); CREATININE SERUM 0.6 mg/dL (0.6-1.4); GLOM FILT RATE Estimated 81.4 mL/min (>60); POTASSIUM 3.9 mmol/L (3.5-5.1)
[2017-04-15 05:16] LABS: HEMATOCRIT 38.5 % (35.0-45.0); HEMOGLOBIN 12.5 gm/dL (12.0-16.0); MEAN CELL VOLUME 92.9 FL (83-96); MEAN CORPUSCULAR HGB CONC 32.3 g/dL (30-36); MEAN PLATELET VOLUME 9.3 FL (6.5-11.5); RED BLOOD COUNT 4.14 X10e (3.90-5.30); RED CELL DISTRIBUTION WIDTH 13.7 % (11.0-15.5); WHITE BLOOD COUNT 10.9 X10e3 (4.0-10.5)
[2017-04-15 06:00] LABS: ALBUMIN SERUM 2.9 g/dL (3.5-5.0); BILIRUBIN,TOTAL 1.2 mg/dL (0.2-2.0); BUN/CREATININE RATIO 13.75; CALCIUM SERUM 8.7 mg/dL (8.4-10.2); CREATININE SERUM 0.8 mg/dL (0.6-1.4); GLOM FILT RATE Estimated 65.9 mL/min (>60); MAGNESIUM 1.6 mg/dL (1.6-3.0); POTASSIUM 3.9 mmol/L (3.5-5.1); PROTEIN TOTAL SERUM 6.1 g/dL (6.0-8.3)
[2017-04-17 07:08] LABS: BUN/CREATININE RATIO 27.14; CALCIUM SERUM 8.9 mg/dL (8.4-10.2); CREATININE SERUM 0.7 mg/dL (0.6-1.4); GLOM FILT RATE Estimated 77.4 mL/min (>60); MAGNESIUM 1.9 mg/dL (1.6-3.0); POTASSIUM 3.6 mmol/L (3.5-5.1)
[2017-04-18 05:28] LABS: BASOPHIL# 0.1 X10e3 (0-0.3); BASOPHIL% 0.8 % (0-2.5); EOSINOPHIL# 0.2 X10e3 (0-0.7); HEMATOCRIT 35.5 % (35.0-45.0); HEMOGLOBIN 11.8 gm/dL (12.0-16.0); LYMPHOCYTE# 2.4 X10e3 (1.0-3.5); LYMPHOCYTE% 22.5 % (17.0-45.0); MEAN CELL VOLUME 91.7 FL (83-96); MEAN CORPUSCULAR HEMOGLOBIN 30.4 PG (28-34); MEAN CORPUSCULAR HGB CONC 33.1 g/dL (30-36); MONOCYTE# 1.1 X10e3 (0-1.0); MONOCYTE% 9.9 % (3.0-12.0); NEUTROPHIL% 64.8 % (40-75); PLATELET COUNT 282 X10e3 (140-420); RED BLOOD COUNT 3.87 X10e (3.90-5.30); RED CELL DISTRIBUTION WIDTH 13.8 % (11.0-15.5); WHITE BLOOD COUNT 10.8 X10e3 (4.0-10.5)
[2017-04-18 05:46] LABS: DIFF IND NO
[2017-04-18 07:04] LABS: CALCIUM SERUM 8.8 mg/dL (8.4-10.2); CREATININE SERUM 0.6 mg/dL (0.6-1.4); GLOM FILT RATE Estimated 81.4 mL/min (>60); POTASSIUM 3.6 mmol/L (3.5-5.1)
== END 2017-04-18 18:56 | DRG 82 ==
LOC: CED 06:06 → CEDOF 08:55 → CED 08:55 → C3A PCU 16:27 → CEDOF 16:27 → C3A PCU 16:27 → CEDOF 04-15 16:15 → C3A PCU 04-18 18:56
PROVIDERS: Emergency Medicine; Family Medicine; Internal Medicine; Psychiatry & Neurology Neurology
PROC: B246YZZ Ultrasonography of Right and Left Heart using Other Contrast (ICD-10-PCS; principal; 2017-04-14)
DX: S06.5X9A Traumatic subdural hemorrhage with loss of consciousness of unspecified duration, initial encounter (principal); G92 Toxic encephalopathy; E46 Unspecified protein-calorie malnutrition; E87.1 Hypo-osmolality and hyponatremia; R13.10 Dysphagia, unspecified; F07.81 Postconcussional syndrome; I65.21 Occlusion and stenosis of right carotid artery; S42.215A Unspecified nondisplaced fracture of surgical neck of left humerus, initial encounter for closed fracture; E87.6 Hypokalemia; R55 Syncope and collapse; M81.0 Age-related osteoporosis without current pathological fracture; I10 Essential (primary) hypertension; J43.9 Emphysema, unspecified; E03.9 Hypothyroidism, unspecified; Z88.0 Allergy status to penicillin; W01.0XXA Fall on same level from slipping, tripping and stumbling without subsequent striking against object, initial encounter; Z91.81 History of falling; Y93.9 Activity, unspecified; Y92.018 Other place in single-family (private) house as the place of occurrence of the external cause; M25.512 Pain in left shoulder; M79.622 Pain in left upper arm
CPT/HCPCS: 36415; 51701; 70450; 70544; 70547; 70553; 71010; 71250; 73030; 73060; 74020; 80048; 80053; 80061; 80076; 81003; 82553; 82607; 82746; 83735; 84132; 84443; 84484; 85025; 85027; 85610; 85730; 86850; 86900; 86901; 87040; 92526; 92610; 93005; 93306; 93880; 95816; 96361; 96374; 96375; 97110; 97116; 97162; 97166; 97530; 97535; 99283; 99285; A9577; C9113; G8978-GP; G8979-GP; G8987-GO; G8988-GO; G8996-GN; G8997-GN; G8998-GN; J2270; J2405; J3420; J3475